=== PATIENT | male | born 1980 | race Asian ===

== ENCOUNTER 2017-09-06 12:08 | Emergency (ER) | payer SELFPAY ==
[~2017-09-06] VITALS: Ht 172.7 cm; Wt 72.6 kg
[2017-09-06 14:48] VITALS: BP 143/81
== END 2017-09-06 14:48 | disposition home or self-care (01) ==
LOC: ED 12:08
DX: S53.104A Unspecified dislocation of right ulnohumeral joint, initial encounter (principal); R03.0 Elevated blood-pressure reading, without diagnosis of hypertension; W18.30XA Fall on same level, unspecified, initial encounter; Y93.89 Activity, other specified; Y92.89 Other specified places as the place of occurrence of the external cause; Y99.8 Other external cause status
CPT/HCPCS: J2405; J3010; J3490; J7030